=== PATIENT | female | born 1975 | race Caucasian/White ===

== ENCOUNTER 2018-03-01 17:43 | Emergency (ER) | payer OTHER | END 2018-03-01 18:21 | disposition home or self-care (01) | LOC: FTE 18:21 | DX: J06.9 Acute upper respiratory infection, unspecified (principal) | CPT/HCPCS: 99283; Z7502 ==

== ENCOUNTER 2018-11-03 19:27 | Emergency (ER) | payer OTHER ==
[2018-11-03] MEDS: KETOROLAC 30 MG INJ IM (20:01)
== END 2018-11-03 22:02 | disposition home or self-care (01) ==
LOC: FTE 19:27
DX: M54.5 Low back pain (principal); M54.2 Cervicalgia
CPT/HCPCS: 72040; 72100; 81025; 96372; 99284-25